=== PATIENT | female | born 1990 | race Caucasian/White ===

== ENCOUNTER 2017-03-03 15:22 | Emergency (ER) | payer BC ==
[~2017-03-03] VITALS: Ht 157.4 cm; Wt 111.1 kg
[~2017-03-03 15:22] MED LIST: EPI EZ PEN1 MG/ML IM; MEDROL DOSEPAK4 MG PO
[2017-03-03] MEDS ORDERED: MEDROL DOSEPAK4 MG PO (16:08)
== END 2017-03-03 16:12 | disposition home or self-care (01) ==
LOC: ED
DX: T63.441A Toxic effect of venom of bees, accidental (unintentional), initial encounter (principal); Z91.030 Bee allergy status; Y92.9 Unspecified place or not applicable

== ENCOUNTER → 2021-09-23 | Outpatient (CLI) | payer BC | END | disposition home or self-care (01) | LOC: LAB 16:41 | PROVIDERS: ATTEND Nurse Practitioner Family | DX: R06.02 Shortness of breath (principal) ==

== ENCOUNTER 2025-03-07 18:31 | Emergency (ER) | payer OTHER ==
[~2025-03-07] VITALS: Ht 160 cm; Wt 122.0 kg
[2025-03-07] MEDS ORDERED: FLUOXETINE HYDR20 M1 PO (18:42)
[2025-03-07] MEDS ORDERED: diphenhydrAMINE hydrochloride 50 MG/ML VIAL IV ONE (18:55)
[2025-03-07] MEDS ORDERED: SODIUM CHLORIDE 0.9% 1,000 ML IV ONE (18:55)
[2025-03-07] MEDS ORDERED: FAMOTIDINE 20 MG TAB PO ONE (18:55)
[2025-03-07] MEDS ORDERED: FAMOTIDINE 50 ML IV ONE (19:05)
[2025-03-07] MEDS ORDERED: PREDNISONE10 M1 PO (21:12)
[2025-03-07] MEDS ORDERED: PEPCID40 MG PO (21:12)
== END 2025-03-07 21:27 | disposition home or self-care (01) ==
LOC: ED 18:31
DX: T63.441A Toxic effect of venom of bees, accidental (unintentional), initial encounter (principal); L50.9 Urticaria, unspecified; Z91.030 Bee allergy status; Z79.899 Other long term (current) drug therapy; Y92.89 Other specified places as the place of occurrence of the external cause